=== PATIENT | female | born 1970 ===

== ENCOUNTER 2025-01-30 16:19 | Emergency (ER) | payer BC, OTHER ==
[~2025-01-30] VITALS: Ht 149.9 cm; Wt 63.9 kg
--- NOTE | 2025-01-30 18:28 | DVH ---
CLINICAL INDICATION: BILATERAL WRIST PAIN TECHNIQUE: XY R WRIST 3+ VIEW XRAY Comparison: None FINDINGS/IMPRESSION: : Comminuted and displaced fracture of the distal radial metaphysis.
--- NOTE | 2025-01-30 18:29 | DVH ---
CLINICAL INDICATION: BILATERAL WRIST PAIN TECHNIQUE: XY L WRIST 3+ VIEW XRAY Comparison: None FINDINGS/IMPRESSION: : Displaced fracture of the distal radial metaphysis. Subcentimeter ossific density at the styloid process of the ulna may represent a subtle fracture.
[2025-01-30] MEDS: HYDROcodone-ACET 5/325MG TAB PO ONE (19:58)
[2025-01-30] MEDS: KETOROLAC TROMETH 60MG/2ML VIAL IM ONE (19:58)
[2025-01-30] MEDS ORDERED: IBUP-1456 PO (20:24)
--- NOTE | 2025-01-30 20:24 | ED.PDOC ---
Maddie. trauma (HPI) HPI Comments PT PRESENTED TO THE ER WITH C/C OF BILATERAL WRIST/HAND PAIN S/P FALL WHILE ROLLER SKATING. PT STATES THAT SHE BRACED HERSELF WHILE FALLING FORWARD . NO DEFORMITIES NOTED. PMSC PRESENT. DENIES NUMBNESS OR WEAKNESS OR ANY OTHER KNOWN INJURY STATES DID NOT HIT HER HEAD NEGATIVE LOC DENIES NECK OR BACK PAIN. 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 History Family History Family History: Unknown Social History Smoker: Non-Smoker Alcohol: Denies ETOH Use Drugs: Denies Drug Use Constitutional: denies: chills, diaphoresis, fatigue, fever, malaise, sweats, weakness, others EENTM: denies: blurred vision, double vision, ear bleeding, ear discharge, ear drainage, ear pain, ear ringing, eye pain, eye redness, hearing loss, mouth pain, mouth swelling, nasal discharge, nose bleeding, nose congestion, nose pain, photophobia, tearing, throat pain, throat swelling, voice changes, others Respiratory: denies: cough, hemoptysis, orthopnea, SOB at rest, shortness of breath, SOB with excertion, stridor, wheezing, others Cardiovascular: denies: chest pain, dizzy spells, diaphoresis, Dyspnea on exertion, edema, irregular heart beat, left arm pain, lightheadedness, palpitations, PND, syncope, others Gastrointestinal: denies: abdomen distended, abdominal pain, blood streaked bowels, constipated, diarrhea, dysphagia, difficulty swallowing, hematemesis, melena, nausea, poor appetite, poor fluid intake, rectal bleeding, rectal pain, vomiting, others Genitourinary: denies: abnormal vagina bleeding, burning, dyspareunia, dysuria, flank pain, frequency, hematuria, incontinence, pain, , vagina discharge, urgency, others Neurological: denies: dizziness, fainting, headache, left sided numbness, left sided weakness, numbness, paresthesia, pre-existing deficit, right sided numbness, right sided weakness, seizure, speech problems, tingling, tremors, weakness, others Musculoskeletal: reports: joint pain, joint swelling; denies: back pain, gout, muscle pain, muscle stiffness, neck pain, others Integumetry: denies: bruises, change in color, change in hair/nails, dryness, laceration, lesions, lumps, rash, wounds, others Allergic/Immunocompromised: denies: Difficulty Healing, Frequent Infections, Hives, Itching, others Hematologic/Lymphatic: denies: anemia, blood clots, easy bleeding, easy b ruising, swollen glands, others Endocrine: denies: excessive hunger, excessive sweating, excessive thirst, excessive urination, flushing, intolerance to cold, intolerance to heat, unexplained weight gain, unexplained weight loss, others Psychiatric: denies: anxiety, bipolar disorder, depression, hopeless, panic disorder, schizophrenia, sleepless, suicidal, others Physical Exam General Appearance: No Apparent Distress, Normal HEENT: Pharynx Normal Neck: Full Range of Motion, Non-Tender Respiratory: Lungs Clear, No Respiratory Distress, Normal Breath Sounds Cardiovascular: No Edema, No JVD, No Murmur, No Gallop, Normal Peripheral Pulses, Regular Rate/Rhythm Breast Exam: Deferred Gastrointestinal: No Organomegaly, Non Tender, No Pulsatile Mass, Normal Bowel Sounds, Soft Genitalia: Deferred Pelvic: Deferred Rectal: Deferred Extremities: Normal capillary refill, Normal inspection, Normal range of motion, Non-tender, No pedal edema Musculoskeletal : Location: Bilateral Extremity Location: Wrist (MODERATE TENDERNESS ON PALPATION WITH GUARDING BILATERAL WRIST POSTERIOR RADIAL ASPECT MILD EDEMA NOTED WITHOUT ECCHYMOSIS ABRASIONS LESIONS OR LACERATIONS STRENGTH SENSORY MOTION INTACT POSITIVE RADIAL PULSES) Apperance: Normal Neurologic: Alert, superintendent measurement II-XII nml as Tested, No Motor Deficits, Normal Affect, Normal Mood, No Sensory Deficits Cerebellar Function: Normal Reflexes: Normal Skin: Dry, Normal Color, Warm Lymphatic: No Adenopathy Was a procedure done? Was a procedure done?: No Differential Diagnosis Multiple Trauma: Fractures X-Ray, Labs, Meds, VS Vital Signs Date Time Temp Pulse Resp B/P (MAP) Pulse Ox O2 Delivery O2 Flow Rate FiO2 5/11/25 20:28 98.9 68 20 139/59 (85) 97 98.9 01/30/25 16:45 98.4 81 18 128/92 (104) 95 98.4 Current Medications Medications (Trade) Dose Ordered Sig/Leyla Route Start Time Stop Time Status Last Admin Ketorolac Tromethamine (Toradol Injection) 60 mg ONCE ONCE IM 01/30/25 19:00 01/30/25 19:01 DC 01/30/25 19:58 X-Ray, Labs, Meds, VS Comment TECHNIQUE: XY R WRIST 3+ VIEW XRAY Comparison: None FINDINGS/IMPRESSION: : Comminuted and displaced fracture of the distal radial metaphysis. TECHNIQUE: XY L WRIST 3+ VIEW XRAY Comparison: None FINDINGS/IMPRESSION: : Displaced fracture of the distal radial metaphysis. Subcentimeter ossific density at the styloid process of the ulna may represent a subtle fracture. Patient placed in bilateral splints. Patient given Toradol 60 mg IM and [place] 5 mg p.o. reports improvement in pain function requesting discharge at this time. Vice patient will need to follow up PCP for referral for ortho consult. Denies not to remove the splint until seen by ortho. Time of 1ST Reevaluation: 18:12 Reevaluation 1ST: Unchanged Time of 2ND Reevaluation: 20:42 Reevaluation 2ND: Improved Patient Education/Counseling: Diagnosis, Treatment, Prognosis, Need For Follow Up Family Education/Counseling: Diagnosis, Treatment, Prognosis, Need For Follow Up Departure 1 Departure Time of Disposition: 20:21 Impression: Primary Impression: Closed fracture of metaphysis of distal end of right radius Additional Impression: Closed fracture of metaphysis of distal end of left radius Disposition: 01 HOME / SELF CARE / HOMELESS Condition: Stable e-Prescriptions Ibuprofen (Ibuprofen) 800 Mg Tab 800 MG PO Q8HP PRN for 10 Days, #30 TAB Prov: SANDY CALLEJAS 01/30/25 Discharged With: Spouse Critical Care Note Critical Care Time?: No Stability Stability form required: SANDY Lawler January 30, 2025 20:24
[2025-01-30 20:28] VITALS: BP 139/59; TEMP 98.9
[2025-01-30 20:35] VITALS: PULSE 68; RESP 20; O2SAT 98
== END 2025-01-30 20:35 | disposition home or self-care (01) ==
LOC: ER 16:19
DX: S52.592A Other fractures of lower end of left radius, initial encounter for closed fracture (principal); S52.591A Other fractures of lower end of right radius, initial encounter for closed fracture; Z79.899 Other long term (current) drug therapy; Z88.5 Allergy status to narcotic agent; V00.131A Fall from skateboard, initial encounter; Y93.51 Activity, roller skating (inline) and skateboarding; Y92.89 Other specified places as the place of occurrence of the external cause; Y99.8 Other external cause status
CPT/HCPCS: 29125; 73110; 96372; 99283; J1885